=== PATIENT | male | born 1955 | race Caucasian/White ===

== ENCOUNTER 2020-07-14 14:40 | Inpatient (IN) ==
[2020-07-14] MEDS ORDERED: Naloxone 0.4 MG/ML INJ IVP PRN (16:31)
[2020-07-14] MEDS ORDERED: Acetaminophen 325 MG TABLET PO PRN (16:31)
[2020-07-14] MEDS ORDERED: Ondansetron 4 MG/2 ML VIAL IVP PRN (16:31)
[2020-07-14] MEDS: Budesonide/Formoterol 160/4.5 1 PUFF INH IH SCH (20:55)
[2020-07-14] MEDS ORDERED: Insulin DETEMIR 100 UNIT/ML per UNIT SUBQ ONE (21:00)
[2020-07-14] MEDS: clonazePAM 0.5 MG TABLET PO PRN (22:41)
[2020-07-14] MEDS: rOPINIRole 0.25 MG TABLET PO SCH (22:41)
[2020-07-14] MEDS: Psyllium 1 PACKET POWD.PACK PO SCH (22:41)
[2020-07-14] MEDS: *HR* OxyCODONE Immed Rel 5 MG TABLET PO PRN (22:42)
[2020-07-14] MEDS ORDERED: Dextrose Gel 15 GM/37.5 ML TUBE PO PRN ×2 (22:43)
[2020-07-14] MEDS ORDERED: *HR* Dextrose 50 % in Water (Vial) 50 ML VIAL IVP PRN (22:43)
[2020-07-14] MEDS ORDERED: D5% in Water 1,000 ML IVC PRN (22:43)
[2020-07-14] MEDS ORDERED: Insulin LISPRO 300 UNITS/3 ML VIAL SUBQ SCH (22:45)
[2020-07-15] MEDS: *HR* Enoxaparin 40 MG/0.4 ML SYRINGE SQ SCH (04:23)
[2020-07-15] MEDS: *HR* OxyCODONE Immed Rel 5 MG TABLET PO PRN ×3 (04:23→21:42)
[2020-07-15 05:45] LABS: Hematocrit 30.9 % (37.5-50.1); Hemoglobin 8.6 g/dL (12.9-16.9); Mean Corpuscular HGB Conc 27.8 g/dL (31.6-35.5); Mean Corpuscular Hemoglobin 19.4 pg (28.0-33.3); Mean Corpuscular Volume 69.8 fL (83.0-100.0); Mean Platelet Volume 8.4 fL (9.4-12.4); Platelet Count 392 K/mcL (140-400); Red Blood Count 4.43 M/mcL (4.19-5.50); Red Cell Distribution Width 18.8 % (11.5-14.5); White Blood Count 11.3 K/mcL (4.3-11.1)
[2020-07-15 06:06] LABS: BUN/Creatinine Ratio 25 (6-26); Blood Urea Nitrogen 23 mg/dL (8-23); Calcium 8.6 mg/dL (8.6-10.3); Carbon Dioxide 27 mEq/L (23-29); Chloride 99 mEq/L (98-107); Glucose 145 mg/dL (70-105); Magnesium 1.9 mg/dL (1.6-2.6); Osmolality,Calculated 284 (280-300); Potassium 3.5 mEq/L (3.5-5.1); Sodium 134 mEq/L (136-145); eGFR For African Americans > 60 (> 60); eGFR For Non-African Americans > 60 (> 60)
[2020-07-15] MEDS: Psyllium 1 PACKET POWD.PACK PO SCH ×3 (08:08→21:41)
[2020-07-15] MEDS: Aspirin 81 MG TAB.CHEW PO SCH (08:09)
[2020-07-15] MEDS: Furosemide 20 MG TABLET PO SCH (08:09)
[2020-07-15] MEDS: *HR* Metformin 500 MG TABLET PO SCH ×2 (08:09→16:06)
[2020-07-15] MEDS: Magnesium Oxide 400 MG TABLET PO SCH (08:10)
[2020-07-15] MEDS: predniSONE 20 MG TABLET PO SCH (08:10)
[2020-07-15] MEDS: Loratadine 10 MG TABLET PO SCH (08:10)
[2020-07-15] MEDS: Azithromycin 250 MG TABLET PO SCH (08:10)
[2020-07-15] MEDS: (Roflumilast [Daliresp] 500 MCG) PO SCH (08:11)
[2020-07-15] MEDS: Fluticasone Propionate Nasal 50 MCG/SPRAY BOTTLE NS SCH (08:14)
[2020-07-15] MEDS: Insulin DETEMIR 100 UNIT/ML X5UNITS SUBQ SCH ×2 (08:14→21:42)
[2020-07-15] MEDS ORDERED: Furosemide 20 MG TABLET PO SCH ×2 (09:00→17:00)
[2020-07-15] MEDS: Tiotropium 10 INH DOSE IH SCH (10:17)
[2020-07-15] MEDS: Budesonide/Formoterol 160/4.5 1 PUFF INH IH SCH ×2 (10:18→20:13)
[2020-07-15] MEDS ORDERED: *HR* Dextrose 50 % in Water (Vial) 50 ML VIAL IVP PRN (17:28)
[2020-07-15] MEDS ORDERED: Dextrose Gel 15 GM/37.5 ML TUBE PO PRN ×2 (17:28)
[2020-07-15] MEDS ORDERED: D5% in Water 1,000 ML IVC PRN (17:28)
[2020-07-15] MEDS: Insulin LISPRO 300 UNITS/3 ML VIAL SUBQ SCH ×2 (17:57→21:39)
[2020-07-15] MEDS: rOPINIRole 0.25 MG TABLET PO SCH (21:40)
[2020-07-15] MEDS: clonazePAM 0.5 MG TABLET PO PRN (21:42)
[2020-07-16] MEDS: *HR* Enoxaparin 40 MG/0.4 ML SYRINGE SQ SCH (06:07)
[2020-07-16] MEDS: *HR* OxyCODONE Immed Rel 5 MG TABLET PO PRN ×3 (06:09→19:05)
[2020-07-16] MEDS: Tiotropium 10 INH DOSE IH SCH (07:46)
[2020-07-16] MEDS: Budesonide/Formoterol 160/4.5 1 PUFF INH IH SCH ×2 (07:47→20:21)
[2020-07-16] MEDS: *HR* Metformin 500 MG TABLET PO SCH ×2 (09:35→16:47)
[2020-07-16] MEDS: Insulin LISPRO 300 UNITS/3 ML VIAL SUBQ SCH ×4 (09:35→22:35)
[2020-07-16] MEDS: predniSONE 20 MG TABLET PO SCH (09:35)
[2020-07-16] MEDS: Aspirin 81 MG TAB.CHEW PO SCH (09:35)
[2020-07-16] MEDS: Loratadine 10 MG TABLET PO SCH (09:36)
[2020-07-16] MEDS: Azithromycin 250 MG TABLET PO SCH (09:36)
[2020-07-16] MEDS: Magnesium Oxide 400 MG TABLET PO SCH (09:36)
[2020-07-16] MEDS: (Roflumilast [Daliresp] 500 MCG) PO SCH (09:36)
[2020-07-16] MEDS: Psyllium 1 PACKET POWD.PACK PO SCH ×3 (09:37→22:35)
[2020-07-16] MEDS: Furosemide 20 MG TABLET PO SCH (09:37)
[2020-07-16] MEDS: clonazePAM 0.5 MG TABLET PO PRN (09:57)
[2020-07-16] MEDS: Fluticasone Propionate Nasal 50 MCG/SPRAY BOTTLE NS SCH (10:00)
[2020-07-16 10:47] LABS: Basophils % 0.2 %; Eosinophils # 0.1 K/mcL (0.0-0.6); Eosinophils % 0.9 %; Hematocrit 32.8 % (37.5-50.1); Hemoglobin 9.1 g/dL (12.9-16.9); Immature Granulocytes % 1.2 % (0-4); Mean Corpuscular HGB Conc 27.7 g/dL (31.6-35.5); Mean Corpuscular Hemoglobin 19.7 pg (28.0-33.3); Mean Corpuscular Volume 71.1 fL (83.0-100.0); Mean Platelet Volume 8.6 fL (9.4-12.4); Monocytes # 0.8 K/mcL (0.0-1.3); Monocytes % 6.9 %; Neutrophils # 9.4 K/mcL (1.6-8.9); Platelet Count 397 K/mcL (140-400); Red Blood Count 4.61 M/mcL (4.19-5.50); Red Cell Distribution Width 19.3 % (11.5-14.5); Segmented Neutrophils % 81.8 %; White Blood Count 11.5 K/mcL (4.3-11.1)
[2020-07-16 10:52] LABS: Anisocytosis 1+ (Not Present); Platelet Estimate Normal (Normal)
[2020-07-16 10:52] LABS: ABG Base Excess 1 mEq/L (-2 to 3); ABG HCO3 25 mEq/L (21-27); ABG Oxygen Saturation 94 % (95-98); ABG PCO2 40 mmHg (35-45); ABG PH 7.41 pH Units (7.32-7.45); ABG PO2 72 mmHg (85-104); ABG TCO2 27 mEq/L (20-26)
[2020-07-16 10:53] LABS: Hypochromasia Present (Not Present); Poikilocytosis 1+ (Not Present)
[2020-07-16 10:59] LABS: BUN/Creatinine Ratio 18 (6-26); Blood Urea Nitrogen 19 mg/dL (8-23); Calcium 8.6 mg/dL (8.6-10.3); Carbon Dioxide 28 mEq/L (23-29); Chloride 98 mEq/L (98-107); Glucose 142 mg/dL (70-105); Osmolality,Calculated 289 (280-300); Potassium 3.5 mEq/L (3.5-5.1); Sodium 137 mEq/L (136-145); eGFR For African Americans > 60 (> 60); eGFR For Non-African Americans > 60 (> 60)
[2020-07-16] MEDS: Insulin DETEMIR 100 UNIT/ML X5UNITS SUBQ SCH ×2 (14:01→22:35)
[2020-07-16] MEDS: cefTRIAXone 2,000 MG in Water for inj. (sterile) 20 ML IVP SCH (14:01)
[2020-07-16] MEDS: Furosemide 20 MG/2 ML VIAL IVP SCH ×2 (14:02→16:47)
[2020-07-16] MEDS: MethylPREDNISolone 40 MG/ML VIAL IVP SCH ×3 (14:03→23:34)
[2020-07-16] MEDS ORDERED: Sennosides/Docusate Sodium TABLET PO PRN (15:34)
[2020-07-16] MEDS: polyethylene glycoL 3350 17 GM POWD.PACK PO SCH (16:46)
[2020-07-16] MEDS: clonazePAM 0.5 MG TABLET PO SCH (22:32)
[2020-07-16] MEDS: rOPINIRole 0.25 MG TABLET PO SCH (22:33)
[2020-07-16] MEDS: Saline Nasal Spray 44 ML BOTTLE NS PRN (22:34)
[2020-07-17] MEDS: MethylPREDNISolone 40 MG/ML VIAL IVP SCH ×3 (05:41→17:59)
[2020-07-17] MEDS: *HR* Enoxaparin 40 MG/0.4 ML SYRINGE SQ SCH (05:41)
[2020-07-17] MEDS: *HR* OxyCODONE Immed Rel 5 MG TABLET PO PRN ×3 (05:42→21:17)
[2020-07-17 05:47] LABS: Hemoglobin 8.4 g/dL (12.9-16.9); Mean Corpuscular Hemoglobin 19.6 pg (28.0-33.3); Mean Corpuscular Volume 69.9 fL (83.0-100.0); Mean Platelet Volume 8.7 fL (9.4-12.4); Platelet Count 325 K/mcL (140-400); Red Blood Count 4.29 M/mcL (4.19-5.50); Red Cell Distribution Width 19.2 % (11.5-14.5); White Blood Count 7.9 K/mcL (4.3-11.1)
[2020-07-17 06:05] LABS: BUN/Creatinine Ratio 23 (6-26); Blood Urea Nitrogen 22 mg/dL (8-23); Calcium 8.5 mg/dL (8.6-10.3); Carbon Dioxide 29 mEq/L (23-29); Chloride 98 mEq/L (98-107); Glucose 231 mg/dL (70-105); Magnesium 1.9 mg/dL (1.6-2.6); Osmolality,Calculated 287 (280-300); Potassium 4.2 mEq/L (3.5-5.1); Sodium 133 mEq/L (136-145); eGFR For African Americans > 60 (> 60); eGFR For Non-African Americans > 60 (> 60)
[2020-07-17] MEDS: Budesonide/Formoterol 160/4.5 1 PUFF INH IH SCH ×2 (07:48→20:14)
[2020-07-17] MEDS: Tiotropium 10 INH DOSE IH SCH (07:49)
[2020-07-17] MEDS ORDERED: Dexamethasone 4 MG/ML VIAL IVP SCH (09:00)
[2020-07-17] MEDS: (Roflumilast [Daliresp] 500 MCG) PO SCH (09:32)
[2020-07-17] MEDS: Insulin LISPRO 300 UNITS/3 ML VIAL SUBQ SCH ×4 (09:35→21:16)
[2020-07-17] MEDS: Insulin DETEMIR 100 UNIT/ML X5UNITS SUBQ SCH ×2 (09:36→21:14)
[2020-07-17] MEDS ORDERED: Benzonatate 100 MG CAPSULE PO PRN (10:06)
[2020-07-17] MEDS: *HR* Metformin 500 MG TABLET PO SCH ×2 (10:08→17:58)
[2020-07-17] MEDS: Furosemide 20 MG/2 ML VIAL IVP SCH ×2 (10:09→17:59)
[2020-07-17] MEDS: Fluticasone Propionate Nasal 50 MCG/SPRAY BOTTLE NS SCH (10:09)
[2020-07-17] MEDS: Aspirin 81 MG TAB.CHEW PO SCH (10:09)
[2020-07-17] MEDS: polyethylene glycoL 3350 17 GM POWD.PACK PO SCH (10:09)
[2020-07-17] MEDS: clonazePAM 0.5 MG TABLET PO SCH ×2 (10:09→21:14)
[2020-07-17] MEDS: Magnesium Oxide 400 MG TABLET PO SCH (10:09)
[2020-07-17] MEDS: Loratadine 10 MG TABLET PO SCH (10:09)
[2020-07-17] MEDS: Psyllium 1 PACKET POWD.PACK PO SCH ×3 (10:09→21:14)
[2020-07-17] MEDS: Azithromycin 250 MG TABLET PO SCH (10:20)
[2020-07-17] MEDS ORDERED: Menthol 9.1 MG LOZENGE PO PRN (11:22)
[2020-07-17] MEDS: cefTRIAXone 2,000 MG in Water for inj. (sterile) 20 ML IVP SCH (13:00)
[2020-07-17] MEDS: rOPINIRole 0.25 MG TABLET PO SCH (21:13)
[2020-07-18] MEDS: MethylPREDNISolone 40 MG/ML VIAL IVP SCH ×4 (00:42→16:17)
[2020-07-18 05:12] LABS: Basophils % 0.1 %; Hematocrit 30.8 % (37.5-50.1); Hemoglobin 8.6 g/dL (12.9-16.9); Lymphocytes # 0.8 K/mcL (0.6-4.6); Lymphocytes % 5.5 %; Mean Corpuscular HGB Conc 27.9 g/dL (31.6-35.5); Mean Corpuscular Hemoglobin 19.6 pg (28.0-33.3); Mean Corpuscular Volume 70.3 fL (83.0-100.0); Mean Platelet Volume 8.8 fL (9.4-12.4); Monocytes # 0.8 K/mcL (0.0-1.3); Monocytes % 5.9 %; Neutrophils # 12.1 K/mcL (1.6-8.9); Platelet Count 356 K/mcL (140-400); Red Blood Count 4.38 M/mcL (4.19-5.50); Red Cell Distribution Width 19.5 % (11.5-14.5); Segmented Neutrophils % 87.5 %; White Blood Count 13.8 K/mcL (4.3-11.1)
[2020-07-18 05:22] LABS: Anisocytosis 1+ (Not Present); Hypochromasia Present (Not Present); Microcytosis Present (Not Present); Platelet Estimate Normal (Normal)
[2020-07-18 05:26] LABS: BUN/Creatinine Ratio 29 (6-26); Blood Urea Nitrogen 28 mg/dL (8-23); Calcium 8.7 mg/dL (8.6-10.3); Carbon Dioxide 27 mEq/L (23-29); Chloride 101 mEq/L (98-107); Glucose 209 mg/dL (70-105); Osmolality,Calculated 296 (280-300); Potassium 4.6 mEq/L (3.5-5.1); Sodium 137 mEq/L (136-145); eGFR For African Americans > 60 (> 60); eGFR For Non-African Americans > 60 (> 60)
[2020-07-18] MEDS: *HR* Enoxaparin 40 MG/0.4 ML SYRINGE SQ SCH (06:51)
[2020-07-18] MEDS: Budesonide/Formoterol 160/4.5 1 PUFF INH IH SCH ×2 (08:35→19:50)
[2020-07-18] MEDS: Insulin LISPRO 300 UNITS/3 ML VIAL SUBQ SCH ×4 (09:35→21:13)
[2020-07-18] MEDS: Insulin DETEMIR 100 UNIT/ML X5UNITS SUBQ SCH ×2 (09:35→21:16)
[2020-07-18] MEDS: Magnesium Oxide 400 MG TABLET PO SCH (09:36)
[2020-07-18] MEDS: Furosemide 20 MG/2 ML VIAL IVP SCH (09:36)
[2020-07-18] MEDS: Loratadine 10 MG TABLET PO SCH (09:36)
[2020-07-18] MEDS: Aspirin 81 MG TAB.CHEW PO SCH (09:37)
[2020-07-18] MEDS: clonazePAM 0.5 MG TABLET PO SCH ×2 (09:37→21:12)
[2020-07-18] MEDS: Fluticasone Propionate Nasal 50 MCG/SPRAY BOTTLE NS SCH (09:37)
[2020-07-18] MEDS: *HR* OxyCODONE Immed Rel 5 MG TABLET PO PRN ×2 (09:37→21:12)
[2020-07-18] MEDS: *HR* Metformin 500 MG TABLET PO SCH ×2 (09:37→16:42)
[2020-07-18] MEDS: Psyllium 1 PACKET POWD.PACK PO SCH ×3 (09:37→21:12)
[2020-07-18] MEDS: polyethylene glycoL 3350 17 GM POWD.PACK PO SCH (09:38)
[2020-07-18] MEDS: Saline Nasal Spray 44 ML BOTTLE NS PRN (09:38)
[2020-07-18] MEDS: (Roflumilast [Daliresp] 500 MCG) PO SCH (09:38)
[2020-07-18] MEDS: Tiotropium 10 INH DOSE IH SCH (11:23)
[2020-07-18] MEDS: cefTRIAXone 2,000 MG in Water for inj. (sterile) 20 ML IVP SCH (13:10)
[2020-07-18] MEDS: Furosemide 40 MG TABLET PO SCH (16:41)
[2020-07-18] MEDS: rOPINIRole 0.25 MG TABLET PO SCH (21:11)
[2020-07-19] MEDS: MethylPREDNISolone 40 MG/ML VIAL IVP SCH ×2 (00:18→09:06)
[2020-07-19 05:08] LABS: Basophils % 0.1 %; Hematocrit 32.1 % (37.5-50.1); Immature Granulocytes % 0.9 % (0-4); Lymphocytes # 0.8 K/mcL (0.6-4.6); Lymphocytes % 5.6 %; Mean Corpuscular Hemoglobin 19.8 pg (28.0-33.3); Mean Corpuscular Volume 70.5 fL (83.0-100.0); Mean Platelet Volume 8.8 fL (9.4-12.4); Monocytes # 0.9 K/mcL (0.0-1.3); Monocytes % 6.2 %; Platelet Count 347 K/mcL (140-400); Red Blood Count 4.55 M/mcL (4.19-5.50); Red Cell Distribution Width 19.9 % (11.5-14.5); Segmented Neutrophils % 87.2 %; White Blood Count 13.8 K/mcL (4.3-11.1)
[2020-07-19 05:19] LABS: BUN/Creatinine Ratio 25 (6-26); Blood Urea Nitrogen 25 mg/dL (8-23); Calcium 8.9 mg/dL (8.6-10.3); Carbon Dioxide 32 mEq/L (23-29); Chloride 97 mEq/L (98-107); Glucose 153 mg/dL (70-105); Osmolality,Calculated 289 (280-300); Potassium 4.4 mEq/L (3.5-5.1); Sodium 136 mEq/L (136-145); eGFR For African Americans > 60 (> 60); eGFR For Non-African Americans > 60 (> 60)
[2020-07-19 05:21] LABS: Anisocytosis 1+ (Not Present); Platelet Estimate Normal (Normal)
[2020-07-19 05:22] LABS: Hypochromasia Present (Not Present); Microcytosis Present (Not Present)
[2020-07-19] MEDS: *HR* Enoxaparin 40 MG/0.4 ML SYRINGE SQ SCH (06:08)
[2020-07-19] MEDS: *HR* OxyCODONE Immed Rel 5 MG TABLET PO PRN (06:10)
[2020-07-19] MEDS: Budesonide/Formoterol 160/4.5 1 PUFF INH IH SCH (07:45)
[2020-07-19 08:23] LABS: C-Reactive Protein 19 mg/L (Less than 10)
[2020-07-19] MEDS: Psyllium 1 PACKET POWD.PACK PO SCH (09:05)
[2020-07-19] MEDS: Aspirin 81 MG TAB.CHEW PO SCH (09:05)
[2020-07-19] MEDS: clonazePAM 0.5 MG TABLET PO SCH (09:05)
[2020-07-19] MEDS: polyethylene glycoL 3350 17 GM POWD.PACK PO SCH (09:05)
[2020-07-19] MEDS: *HR* Metformin 500 MG TABLET PO SCH (09:05)
[2020-07-19] MEDS: Loratadine 10 MG TABLET PO SCH (09:05)
[2020-07-19] MEDS: Insulin LISPRO 300 UNITS/3 ML VIAL SUBQ SCH ×2 (09:05→12:22)
[2020-07-19] MEDS: Magnesium Oxide 400 MG TABLET PO SCH (09:06)
[2020-07-19] MEDS: Furosemide 40 MG TABLET PO SCH (09:06)
[2020-07-19] MEDS: Fluticasone Propionate Nasal 50 MCG/SPRAY BOTTLE NS SCH (09:07)
[2020-07-19] MEDS: (Roflumilast [Daliresp] 500 MCG) PO SCH (09:10)
[2020-07-19] MEDS: Insulin DETEMIR 100 UNIT/ML X5UNITS SUBQ SCH (09:36)
[2020-07-19] MEDS: Tiotropium 10 INH DOSE IH SCH (11:42)
[2020-07-19] MEDS: cefTRIAXone 2,000 MG in Water for inj. (sterile) 20 ML IVP SCH (14:19)
[2020-07-19 19:01] VITALS: BP 132/79
== END 2020-07-19 14:25 | disposition other institution (70) | DRG 177 ==
LOC: INPGRE 17:29
PROVIDERS: ADMIT Family Medicine; ATTEND Family Medicine

== ENCOUNTER 2020-07-19 15:09 | Inpatient (IN) ==
[2020-07-19] MEDS ORDERED: Saline Nasal Spray 44 ML BOTTLE NS PRN (15:35)
[2020-07-19] MEDS ORDERED: Dextrose Gel 15 GM/37.5 ML TUBE PO PRN ×2 (15:45)
[2020-07-19] MEDS ORDERED: *HR* Dextrose 50 % in Water (Vial) 50 ML VIAL IVP PRN (15:45)
[2020-07-19] MEDS ORDERED: D5% in Water 1,000 ML IVC PRN (15:45)
[2020-07-19] MEDS ORDERED: Acetaminophen 325 MG TABLET PO PRN (15:51)
[2020-07-19] MEDS ORDERED: Ondansetron 4 MG/2 ML VIAL IVP PRN (15:52)
[2020-07-19] MEDS: MethylPREDNISolone 40 MG/ML VIAL IVP SCH ×2 (18:39→23:33)
[2020-07-19] MEDS: Furosemide 40 MG TABLET PO SCH (18:39)
[2020-07-19] MEDS: Insulin LISPRO 300 UNITS/3 ML VIAL SUBQ SCH ×2 (18:56→20:20)
[2020-07-19] MEDS: *HR* OxyCODONE Immed Rel 5 MG TABLET PO PRN ×2 (18:58→23:28)
[2020-07-19] MEDS: Budesonide/Formoterol 160/4.5 1 PUFF INH IH SCH ×2 (20:09→21:39)
[2020-07-19] MEDS: *HR* Metformin 500 MG TABLET PO SCH (20:27)
[2020-07-19] MEDS: Metoclopramide 10 MG/10 ML UD.LIQ PO SCH (20:28)
[2020-07-19] MEDS: rOPINIRole 0.25 MG TABLET PO SCH (20:28)
[2020-07-19] MEDS: Psyllium 1 PACKET POWD.PACK PO SCH (20:28)
[2020-07-19] MEDS ORDERED: Insulin DETEMIR 100 UNIT/ML per UNIT SUBQ ONE (21:00)
[2020-07-20] MEDS: *HR* Enoxaparin 40 MG/0.4 ML SYRINGE SQ SCH (05:33)
[2020-07-20] MEDS: *HR* OxyCODONE Immed Rel 5 MG TABLET PO PRN ×3 (05:34→20:44)
[2020-07-20] MEDS: Tiotropium 10 INH DOSE IH SCH (07:50)
[2020-07-20] MEDS: Budesonide/Formoterol 160/4.5 1 PUFF INH IH SCH ×2 (07:50→20:04)
[2020-07-20] MEDS ORDERED: cefTRIAXone 2,000 MG in Water for inj. (sterile) 20 ML IVP SCH (09:00)
[2020-07-20] MEDS: Insulin LISPRO 300 UNITS/3 ML VIAL SUBQ SCH ×4 (09:33→20:41)
[2020-07-20] MEDS: Insulin DETEMIR 100 UNIT/ML X5UNITS SUBQ SCH ×2 (09:34→20:42)
[2020-07-20] MEDS: *HR* Metformin 500 MG TABLET PO SCH ×2 (09:35→20:44)
[2020-07-20] MEDS: Aspirin 81 MG TAB.CHEW PO SCH (09:35)
[2020-07-20] MEDS: Loratadine 10 MG TABLET PO SCH (09:36)
[2020-07-20] MEDS: Metoclopramide 10 MG/10 ML UD.LIQ PO SCH ×3 (09:36→17:04)
[2020-07-20] MEDS: Magnesium Oxide 400 MG TABLET PO SCH (09:36)
[2020-07-20] MEDS: Fluticasone Propionate Nasal 50 MCG/SPRAY BOTTLE NS SCH (09:37)
[2020-07-20] MEDS: MethylPREDNISolone 40 MG/ML VIAL IVP SCH (09:37)
[2020-07-20] MEDS: Furosemide 40 MG TABLET PO SCH ×2 (09:37→17:04)
[2020-07-20] MEDS: Psyllium 1 PACKET POWD.PACK PO SCH ×3 (09:38→20:41)
[2020-07-20] MEDS: polyethylene glycoL 3350 17 GM POWD.PACK PO SCH (09:38)
[2020-07-20] MEDS: predniSONE 20 MG TABLET PO SCH (17:04)
[2020-07-20] MEDS: Menthol 9.1 MG LOZENGE PO PRN ×2 (17:07→20:41)
[2020-07-20] MEDS: rOPINIRole 0.25 MG TABLET PO SCH (20:43)
[2020-07-20] MEDS: Cefdinir 300 MG CAPSULE PO SCH (20:43)
[2020-07-20] MEDS: clonazePAM 0.5 MG TABLET PO PRN (20:44)
[2020-07-21 05:09] LABS: Hematocrit 31.1 % (37.5-50.1); Hemoglobin 8.8 g/dL (12.9-16.9); Mean Corpuscular HGB Conc 28.3 g/dL (31.6-35.5); Mean Corpuscular Hemoglobin 19.9 pg (28.0-33.3); Mean Corpuscular Volume 70.2 fL (83.0-100.0); Platelet Count 310 K/mcL (140-400); Red Blood Count 4.43 M/mcL (4.19-5.50); Red Cell Distribution Width 20.1 % (11.5-14.5); White Blood Count 11.3 K/mcL (4.3-11.1)
[2020-07-21 05:23] LABS: BUN/Creatinine Ratio 24 (6-26); Blood Urea Nitrogen 21 mg/dL (8-23); Calcium 8.6 mg/dL (8.6-10.3); Carbon Dioxide 29 mEq/L (23-29); Chloride 95 mEq/L (98-107); Glucose 154 mg/dL (70-105); Osmolality,Calculated 280 (280-300); Sodium 132 mEq/L (136-145); eGFR For African Americans > 60 (> 60); eGFR For Non-African Americans > 60 (> 60)
[2020-07-21] MEDS: *HR* Enoxaparin 40 MG/0.4 ML SYRINGE SQ SCH (05:27)
[2020-07-21] MEDS: Insulin LISPRO 300 UNITS/3 ML VIAL SUBQ SCH ×4 (07:35→21:35)
[2020-07-21] MEDS: Insulin DETEMIR 100 UNIT/ML X5UNITS SUBQ SCH ×2 (08:44→21:35)
[2020-07-21] MEDS: Psyllium 1 PACKET POWD.PACK PO SCH ×3 (08:44→21:30)
[2020-07-21] MEDS: Metoclopramide 10 MG/10 ML UD.LIQ PO SCH ×3 (08:44→16:53)
[2020-07-21] MEDS: *HR* Metformin 500 MG TABLET PO SCH ×2 (08:44→21:29)
[2020-07-21] MEDS: predniSONE 20 MG TABLET PO SCH ×2 (08:44→16:53)
[2020-07-21] MEDS: Aspirin 81 MG TAB.CHEW PO SCH (08:44)
[2020-07-21] MEDS: Loratadine 10 MG TABLET PO SCH (08:45)
[2020-07-21] MEDS: Furosemide 40 MG TABLET PO SCH ×2 (08:45→16:53)
[2020-07-21] MEDS: Cefdinir 300 MG CAPSULE PO SCH ×2 (08:45→21:30)
[2020-07-21] MEDS: *HR* OxyCODONE Immed Rel 5 MG TABLET PO PRN ×2 (08:46→21:33)
[2020-07-21] MEDS: Budesonide/Formoterol 160/4.5 1 PUFF INH IH SCH ×2 (08:53→19:14)
[2020-07-21] MEDS: Tiotropium 10 INH DOSE IH SCH (08:53)
[2020-07-21] MEDS: clonazePAM 0.5 MG TABLET PO PRN ×2 (09:00→21:33)
[2020-07-21] MEDS ORDERED: Dexamethasone 4 MG/ML VIAL IVP ONE ×2 (09:13→09:14)
[2020-07-21] MEDS: Menthol 9.1 MG LOZENGE PO PRN (09:54)
[2020-07-21] MEDS: Benzonatate 100 MG CAPSULE PO PRN ×2 (09:54→21:33)
[2020-07-21] MEDS: polyethylene glycoL 3350 17 GM POWD.PACK PO SCH (09:55)
[2020-07-21] MEDS: Fluticasone Propionate Nasal 50 MCG/SPRAY BOTTLE NS SCH (09:55)
[2020-07-21] MEDS: Magnesium Oxide 400 MG TABLET PO SCH (09:55)
[2020-07-21] MEDS: Ketorolac 15 MG/ML VIAL IVP PRN ×2 (13:23→22:35)
[2020-07-21] MEDS: levoFLOXacin 500 MG TABLET PO SCH (16:53)
[2020-07-21] MEDS: rOPINIRole 0.25 MG TABLET PO SCH (21:30)
[2020-07-22] MEDS: *HR* Enoxaparin 40 MG/0.4 ML SYRINGE SQ SCH (05:58)
[2020-07-22] MEDS: *HR* OxyCODONE Immed Rel 5 MG TABLET PO PRN (05:58)
[2020-07-22] MEDS ORDERED: dexAMETHasone 4 MG TABLET PO SCH (09:00)
[2020-07-22] MEDS: Magnesium Oxide 400 MG TABLET PO SCH (09:23)
[2020-07-22] MEDS: predniSONE 20 MG TABLET PO SCH ×2 (09:23→17:45)
[2020-07-22] MEDS: levoFLOXacin 500 MG TABLET PO SCH (09:23)
[2020-07-22] MEDS: Loratadine 10 MG TABLET PO SCH (09:23)
[2020-07-22] MEDS: Cefdinir 300 MG CAPSULE PO SCH ×2 (09:24→22:33)
[2020-07-22] MEDS: Metoclopramide 10 MG/10 ML UD.LIQ PO SCH ×3 (09:24→17:45)
[2020-07-22] MEDS: clonazePAM 0.5 MG TABLET PO PRN ×2 (09:24→22:33)
[2020-07-22] MEDS: *HR* Metformin 500 MG TABLET PO SCH ×2 (09:24→22:32)
[2020-07-22] MEDS: Furosemide 40 MG TABLET PO SCH ×2 (09:24→17:45)
[2020-07-22] MEDS: Aspirin 81 MG TAB.CHEW PO SCH (09:24)
[2020-07-22] MEDS: Fluticasone Propionate Nasal 50 MCG/SPRAY BOTTLE NS SCH (09:26)
[2020-07-22] MEDS: Budesonide/Formoterol 160/4.5 1 PUFF INH IH SCH ×2 (09:43→20:00)
[2020-07-22] MEDS: Tiotropium 10 INH DOSE IH SCH (09:43)
[2020-07-22] MEDS: Insulin DETEMIR 100 UNIT/ML X5UNITS SUBQ SCH ×2 (10:01→22:37)
[2020-07-22] MEDS: polyethylene glycoL 3350 17 GM POWD.PACK PO SCH (11:24)
[2020-07-22] MEDS: Insulin LISPRO 300 UNITS/3 ML VIAL SUBQ SCH ×4 (11:25→22:37)
[2020-07-22] MEDS: Psyllium 1 PACKET POWD.PACK PO SCH ×3 (11:26→22:36)
[2020-07-22] MEDS: rOPINIRole 0.25 MG TABLET PO SCH (22:32)
[2020-07-22] MEDS: Benzonatate 100 MG CAPSULE PO PRN (22:34)
[2020-07-22] MEDS: Ketorolac 15 MG/ML VIAL IVP PRN (22:35)
[2020-07-23] MEDS: *HR* OxyCODONE Immed Rel 5 MG TABLET PO PRN ×2 (06:24→21:01)
[2020-07-23] MEDS: *HR* Enoxaparin 40 MG/0.4 ML SYRINGE SQ SCH (06:24)
[2020-07-23] MEDS: Insulin LISPRO 300 UNITS/3 ML VIAL SUBQ SCH ×4 (08:21→20:58)
[2020-07-23] MEDS: Budesonide/Formoterol 160/4.5 1 PUFF INH IH SCH ×2 (08:50→20:38)
[2020-07-23] MEDS: Metoclopramide 10 MG/10 ML UD.LIQ PO SCH ×3 (09:30→15:15)
[2020-07-23] MEDS: Aspirin 81 MG TAB.CHEW PO SCH (09:30)
[2020-07-23] MEDS: Psyllium 1 PACKET POWD.PACK PO SCH ×3 (09:30→20:58)
[2020-07-23] MEDS: Cefdinir 300 MG CAPSULE PO SCH (09:30)
[2020-07-23] MEDS: Magnesium Oxide 400 MG TABLET PO SCH (09:31)
[2020-07-23] MEDS: Loratadine 10 MG TABLET PO SCH (09:31)
[2020-07-23] MEDS: predniSONE 20 MG TABLET PO SCH ×2 (09:31→15:15)
[2020-07-23] MEDS: Furosemide 40 MG TABLET PO SCH (09:31)
[2020-07-23] MEDS: polyethylene glycoL 3350 17 GM POWD.PACK PO SCH (09:31)
[2020-07-23] MEDS: levoFLOXacin 500 MG TABLET PO SCH (09:32)
[2020-07-23] MEDS: Fluticasone Propionate Nasal 50 MCG/SPRAY BOTTLE NS SCH (09:32)
[2020-07-23] MEDS: *HR* Metformin 500 MG TABLET PO SCH ×2 (09:32→20:44)
[2020-07-23] MEDS: Tiotropium 10 INH DOSE IH SCH (09:57)
[2020-07-23] MEDS: Insulin DETEMIR 100 UNIT/ML X5UNITS SUBQ SCH ×2 (10:50→20:55)
[2020-07-23] MEDS ORDERED: Albuterol 2.5 MG/3 ML NEBULIZER ONE (12:05)
[2020-07-23] MEDS ORDERED: Furosemide 20 MG/2 ML VIAL IVP ONE (14:34)
[2020-07-23] MEDS: Ipratropium/Albuterol Neb 3 ML IH SCH ×3 (16:15→23:44)
[2020-07-23] MEDS: Furosemide 40 MG/4 ML VIAL IVP SCH (20:43)
[2020-07-23] MEDS: rOPINIRole 0.25 MG TABLET PO SCH (20:44)
[2020-07-23] MEDS: clonazePAM 0.5 MG TABLET PO PRN (22:41)
[2020-07-24] MEDS: Cefepime HCl 1,000 MG in 0.9 % Sodium Chloride Mini Bag 100 ML IVPB SCH ×3 (00:26→16:50)
[2020-07-24] MEDS: Ipratropium/Albuterol Neb 3 ML IH SCH ×6 (03:59→23:58)
[2020-07-24] MEDS: *HR* Enoxaparin 40 MG/0.4 ML SYRINGE SQ SCH (05:46)
[2020-07-24] MEDS: Insulin LISPRO 300 UNITS/3 ML VIAL SUBQ SCH ×4 (08:57→20:43)
[2020-07-24] MEDS: Metoclopramide 10 MG/10 ML UD.LIQ PO SCH ×3 (08:58→14:41)
[2020-07-24] MEDS: Loratadine 10 MG TABLET PO SCH (08:59)
[2020-07-24] MEDS: Psyllium 1 PACKET POWD.PACK PO SCH ×3 (08:59→20:37)
[2020-07-24] MEDS: Aspirin 81 MG TAB.CHEW PO SCH (08:59)
[2020-07-24] MEDS: *HR* Metformin 500 MG TABLET PO SCH ×2 (08:59→20:32)
[2020-07-24] MEDS: predniSONE 20 MG TABLET PO SCH ×2 (08:59→16:48)
[2020-07-24] MEDS: Magnesium Oxide 400 MG TABLET PO SCH (09:00)
[2020-07-24] MEDS: levoFLOXacin 500 MG TABLET PO SCH (09:00)
[2020-07-24] MEDS: Fluticasone Propionate Nasal 50 MCG/SPRAY BOTTLE NS SCH (09:01)
[2020-07-24] MEDS: polyethylene glycoL 3350 17 GM POWD.PACK PO SCH (09:01)
[2020-07-24] MEDS: *HR* OxyCODONE Immed Rel 5 MG TABLET PO PRN ×3 (09:05→20:42)
[2020-07-24] MEDS: Budesonide/Formoterol 160/4.5 1 PUFF INH IH SCH ×2 (09:06→19:59)
[2020-07-24] MEDS: Tiotropium 10 INH DOSE IH SCH (09:07)
[2020-07-24] MEDS: Insulin DETEMIR 100 UNIT/ML X5UNITS SUBQ SCH ×2 (09:13→20:43)
[2020-07-24] MEDS: Furosemide 40 MG/4 ML VIAL IVP SCH ×2 (09:14→20:30)
[2020-07-24 09:59] LABS: Hematocrit 35.8 % (37.5-50.1); Hemoglobin 10.2 g/dL (12.9-16.9); Mean Corpuscular HGB Conc 28.5 g/dL (31.6-35.5); Mean Corpuscular Hemoglobin 20.1 pg (28.0-33.3); Mean Corpuscular Volume 70.6 fL (83.0-100.0); Mean Platelet Volume 8.8 fL (9.4-12.4); Platelet Count 418 K/mcL (140-400); Red Blood Count 5.07 M/mcL (4.19-5.50); White Blood Count 11.4 K/mcL (4.3-11.1)
[2020-07-24 10:15] LABS: BUN/Creatinine Ratio 23 (6-26); Blood Urea Nitrogen 22 mg/dL (8-23); Calcium 9.3 mg/dL (8.6-10.3); Carbon Dioxide 29 mEq/L (23-29); Chloride 97 mEq/L (98-107); Glucose 96 mg/dL (70-105); Osmolality,Calculated 287 (280-300); Potassium 3.9 mEq/L (3.5-5.1); Sodium 137 mEq/L (136-145); eGFR For African Americans > 60 (> 60); eGFR For Non-African Americans > 60 (> 60)
[2020-07-24] MEDS: rOPINIRole 0.25 MG TABLET PO SCH (20:32)
[2020-07-24] MEDS: clonazePAM 0.5 MG TABLET PO PRN (22:14)
[2020-07-25] MEDS: Cefepime HCl 1,000 MG in 0.9 % Sodium Chloride Mini Bag 100 ML IVPB SCH ×3 (00:02→17:45)
[2020-07-25] MEDS: Ipratropium/Albuterol Neb 3 ML IH SCH ×6 (04:03→22:56)
[2020-07-25] MEDS: *HR* Enoxaparin 40 MG/0.4 ML SYRINGE SQ SCH (06:02)
[2020-07-25] MEDS: Tiotropium 10 INH DOSE IH SCH (09:13)
[2020-07-25] MEDS: Budesonide/Formoterol 160/4.5 1 PUFF INH IH SCH ×2 (09:14→19:00)
[2020-07-25] MEDS: Insulin LISPRO 300 UNITS/3 ML VIAL SUBQ SCH ×4 (10:09→20:48)
[2020-07-25] MEDS: *HR* Metformin 500 MG TABLET PO SCH ×2 (10:10→20:47)
[2020-07-25] MEDS: predniSONE 20 MG TABLET PO SCH ×2 (10:10→17:03)
[2020-07-25] MEDS: Aspirin 81 MG TAB.CHEW PO SCH (10:11)
[2020-07-25] MEDS: Magnesium Oxide 400 MG TABLET PO SCH (10:11)
[2020-07-25] MEDS: Psyllium 1 PACKET POWD.PACK PO SCH ×3 (10:11→20:48)
[2020-07-25] MEDS: levoFLOXacin 500 MG TABLET PO SCH (10:12)
[2020-07-25] MEDS: Fluticasone Propionate Nasal 50 MCG/SPRAY BOTTLE NS SCH (10:12)
[2020-07-25] MEDS: Loratadine 10 MG TABLET PO SCH (10:12)
[2020-07-25] MEDS: Furosemide 40 MG/4 ML VIAL IVP SCH ×2 (10:12→20:46)
[2020-07-25] MEDS: Insulin DETEMIR 100 UNIT/ML X5UNITS SUBQ SCH ×2 (10:14→21:01)
[2020-07-25] MEDS: Metoclopramide 10 MG/10 ML UD.LIQ PO SCH ×3 (10:16→17:06)
[2020-07-25] MEDS: polyethylene glycoL 3350 17 GM POWD.PACK PO SCH (10:24)
[2020-07-25] MEDS: clonazePAM 0.5 MG TABLET PO PRN ×2 (13:06→20:59)
[2020-07-25] MEDS: Menthol 9.1 MG LOZENGE PO PRN (17:04)
[2020-07-25] MEDS: rOPINIRole 0.25 MG TABLET PO SCH (20:47)
[2020-07-25] MEDS: Benzonatate 100 MG CAPSULE PO PRN (20:58)
[2020-07-25] MEDS: *HR* OxyCODONE Immed Rel 5 MG TABLET PO PRN (20:59)
[2020-07-26] MEDS: Cefepime HCl 1,000 MG in 0.9 % Sodium Chloride Mini Bag 100 ML IVPB SCH ×4 (00:05→23:02)
[2020-07-26] MEDS: Menthol 9.1 MG LOZENGE PO PRN ×2 (00:08→07:52)
[2020-07-26] MEDS: Ipratropium/Albuterol Neb 3 ML IH SCH ×6 (03:00→23:01)
[2020-07-26] MEDS: *HR* Enoxaparin 40 MG/0.4 ML SYRINGE SQ SCH (05:02)
[2020-07-26] MEDS: Insulin LISPRO 300 UNITS/3 ML VIAL SUBQ SCH ×4 (07:51→19:30)
[2020-07-26] MEDS: Psyllium 1 PACKET POWD.PACK PO SCH ×3 (07:52→19:30)
[2020-07-26] MEDS: Metoclopramide 10 MG/10 ML UD.LIQ PO SCH ×3 (07:52→15:53)
[2020-07-26] MEDS: predniSONE 20 MG TABLET PO SCH ×2 (07:53→15:54)
[2020-07-26] MEDS: *HR* Metformin 500 MG TABLET PO SCH ×2 (07:54→19:26)
[2020-07-26] MEDS: levoFLOXacin 500 MG TABLET PO SCH (07:54)
[2020-07-26] MEDS: Loratadine 10 MG TABLET PO SCH (07:54)
[2020-07-26] MEDS: Aspirin 81 MG TAB.CHEW PO SCH (07:54)
[2020-07-26] MEDS: Magnesium Oxide 400 MG TABLET PO SCH (07:54)
[2020-07-26] MEDS: Fluticasone Propionate Nasal 50 MCG/SPRAY BOTTLE NS SCH (07:56)
[2020-07-26] MEDS: polyethylene glycoL 3350 17 GM POWD.PACK PO SCH (07:56)
[2020-07-26] MEDS: Furosemide 40 MG/4 ML VIAL IVP SCH ×2 (07:56→19:30)
[2020-07-26] MEDS: *HR* OxyCODONE Immed Rel 5 MG TABLET PO PRN ×2 (08:10→19:29)
[2020-07-26] MEDS: Budesonide/Formoterol 160/4.5 1 PUFF INH IH SCH ×2 (08:44→21:53)
[2020-07-26] MEDS: Tiotropium 10 INH DOSE IH SCH (08:46)
[2020-07-26 09:24] LABS: Hematocrit 37.5 % (37.5-50.1); Hemoglobin 10.7 g/dL (12.9-16.9); Mean Corpuscular HGB Conc 28.5 g/dL (31.6-35.5); Mean Corpuscular Volume 70.1 fL (83.0-100.0); Mean Platelet Volume 8.6 fL (9.4-12.4); Platelet Count 489 K/mcL (140-400); Red Blood Count 5.35 M/mcL (4.19-5.50); Red Cell Distribution Width 21.4 % (11.5-14.5); White Blood Count 13.3 K/mcL (4.3-11.1)
[2020-07-26 09:42] LABS: Alanine Aminotransferase 21 Units/L (7-52); Albumin 3.8 g/dL (3.5-5.7); Alkaline Phosphatase 68 Units/L (34-104); Aspartate Amino Transferase 12 Units/L (13-39); BUN/Creatinine Ratio 27 (6-26); Bilirubin,Total 0.3 mg/dL (0.3-1.0); Blood Urea Nitrogen 28 mg/dL (8-23); Calcium 9.8 mg/dL (8.6-10.3); Carbon Dioxide 27 mEq/L (23-29); Chloride 95 mEq/L (98-107); Glucose 163 mg/dL (70-105); Magnesium 1.7 mg/dL (1.6-2.6); Osmolality,Calculated 289 (280-300); Potassium 3.9 mEq/L (3.5-5.1); Sodium 135 mEq/L (136-145); Total Protein 7.8 g/dL (6.4-8.9); eGFR For African Americans > 60 (> 60); eGFR For Non-African Americans > 60 (> 60)
[2020-07-26] MEDS: Insulin DETEMIR 100 UNIT/ML X5UNITS SUBQ SCH ×2 (09:49→19:29)
[2020-07-26 13:38] LABS: C-Reactive Protein 74 mg/L (Less than 10)
[2020-07-26 13:52] LABS: Ferritin 513 ng/mL (20-250)
[2020-07-26] MEDS: rOPINIRole 0.25 MG TABLET PO SCH (19:29)
[2020-07-26] MEDS: Benzonatate 100 MG CAPSULE PO PRN (19:29)
[2020-07-26] MEDS: clonazePAM 0.5 MG TABLET PO PRN (19:33)
[2020-07-27] MEDS: Ipratropium/Albuterol Neb 3 ML IH SCH ×6 (04:00→23:49)
[2020-07-27] MEDS: *HR* Enoxaparin 40 MG/0.4 ML SYRINGE SQ SCH (06:40)
[2020-07-27] MEDS: Fluticasone Propionate Nasal 50 MCG/SPRAY BOTTLE NS SCH (08:52)
[2020-07-27] MEDS: polyethylene glycoL 3350 17 GM POWD.PACK PO SCH (08:53)
[2020-07-27] MEDS: Psyllium 1 PACKET POWD.PACK PO SCH ×3 (08:53→20:03)
[2020-07-27] MEDS: predniSONE 20 MG TABLET PO SCH ×2 (08:54→16:34)
[2020-07-27] MEDS: levoFLOXacin 500 MG TABLET PO SCH (08:54)
[2020-07-27] MEDS: *HR* Metformin 500 MG TABLET PO SCH ×2 (08:54→20:06)
[2020-07-27] MEDS: Aspirin 81 MG TAB.CHEW PO SCH (08:54)
[2020-07-27] MEDS: Magnesium Oxide 400 MG TABLET PO SCH (08:54)
[2020-07-27] MEDS: Metoclopramide 10 MG/10 ML UD.LIQ PO SCH ×3 (08:55→16:34)
[2020-07-27] MEDS: *HR* OxyCODONE Immed Rel 5 MG TABLET PO PRN ×3 (08:55→20:05)
[2020-07-27] MEDS: clonazePAM 0.5 MG TABLET PO PRN ×3 (08:55→20:06)
[2020-07-27] MEDS: Loratadine 10 MG TABLET PO SCH (08:55)
[2020-07-27] MEDS: Cefepime HCl 1,000 MG in 0.9 % Sodium Chloride Mini Bag 100 ML IVPB SCH ×3 (08:58→22:30)
[2020-07-27] MEDS: Insulin DETEMIR 100 UNIT/ML X5UNITS SUBQ SCH ×2 (08:59→20:00)
[2020-07-27] MEDS: Insulin LISPRO 300 UNITS/3 ML VIAL SUBQ SCH ×4 (08:59→20:00)
[2020-07-27] MEDS: Furosemide 40 MG/4 ML VIAL IVP SCH ×2 (09:02→19:58)
[2020-07-27] MEDS: Tiotropium 10 INH DOSE IH SCH (09:45)
[2020-07-27] MEDS: Budesonide/Formoterol 160/4.5 1 PUFF INH IH SCH ×2 (09:47→20:10)
[2020-07-27] MEDS: Menthol 9.1 MG LOZENGE PO PRN ×2 (11:34→15:06)
[2020-07-27] MEDS: Benzonatate 100 MG CAPSULE PO PRN (20:06)
[2020-07-27] MEDS: rOPINIRole 0.25 MG TABLET PO SCH (20:07)
[2020-07-28] MEDS: Ipratropium/Albuterol Neb 3 ML IH SCH ×2 (03:56→07:36)
[2020-07-28] MEDS: *HR* Enoxaparin 40 MG/0.4 ML SYRINGE SQ SCH (04:50)
[2020-07-28] MEDS: Tiotropium 10 INH DOSE IH SCH (07:37)
[2020-07-28] MEDS: Budesonide/Formoterol 160/4.5 1 PUFF INH IH SCH (07:38)
[2020-07-28] MEDS: Loratadine 10 MG TABLET PO SCH (08:47)
[2020-07-28] MEDS: *HR* OxyCODONE Immed Rel 5 MG TABLET PO PRN (08:47)
[2020-07-28] MEDS: *HR* Metformin 500 MG TABLET PO SCH (08:47)
[2020-07-28] MEDS: levoFLOXacin 500 MG TABLET PO SCH (08:47)
[2020-07-28] MEDS: clonazePAM 0.5 MG TABLET PO PRN (08:47)
[2020-07-28] MEDS: Aspirin 81 MG TAB.CHEW PO SCH (08:47)
[2020-07-28] MEDS: predniSONE 20 MG TABLET PO SCH (08:47)
[2020-07-28] MEDS: Metoclopramide 10 MG/10 ML UD.LIQ PO SCH (08:48)
[2020-07-28] MEDS: Magnesium Oxide 400 MG TABLET PO SCH (08:48)
[2020-07-28] MEDS: Menthol 9.1 MG LOZENGE PO PRN ×2 (08:51→10:38)
[2020-07-28] MEDS: Insulin DETEMIR 100 UNIT/ML X5UNITS SUBQ SCH (08:52)
[2020-07-28] MEDS: Insulin LISPRO 300 UNITS/3 ML VIAL SUBQ SCH (08:53)
[2020-07-28] MEDS: Cefepime HCl 1,000 MG in 0.9 % Sodium Chloride Mini Bag 100 ML IVPB SCH (08:54)
[2020-07-28] MEDS: Fluticasone Propionate Nasal 50 MCG/SPRAY BOTTLE NS SCH (08:54)
[2020-07-28] MEDS: Furosemide 40 MG/4 ML VIAL IVP SCH (08:57)
[2020-07-28] MEDS: polyethylene glycoL 3350 17 GM POWD.PACK PO SCH (08:57)
[2020-07-28] MEDS: Psyllium 1 PACKET POWD.PACK PO SCH (08:57)
[2020-07-28 11:11] VITALS: BP 144/76
== END 2020-07-28 10:59 | disposition home health service (06) | DRG 177 ==
LOC: INPGRE 15:12 → SUATTDRO 15:12 → INPGRE 07-22 13:58
PROVIDERS: ADMIT Internal Medicine; ATTEND Family Medicine

== ENCOUNTER 2020-08-09 17:49 | Inpatient (IN) ==
[2020-08-12] MEDS ORDERED: Acetaminophen 325 MG TABLET PO PRN (14:49)
[2020-08-12] MEDS ORDERED: Saline Nasal Spray 44 ML BOTTLE NS PRN (14:52)
[2020-08-12] MEDS ORDERED: *HR* Dextrose 50 % in Water (Vial) 50 ML VIAL IVP PRN (16:45)
[2020-08-12] MEDS ORDERED: D5% in Water 1,000 ML IVC PRN (16:45)
[2020-08-12] MEDS ORDERED: Dextrose Gel 15 GM/37.5 ML TUBE PO PRN ×2 (16:45)
[2020-08-12] MEDS: Furosemide 40 MG TABLET PO SCH (17:37)
[2020-08-12] MEDS: *HR* Metformin 500 MG TABLET PO SCH (17:37)
[2020-08-12] MEDS: *HR* Rivaroxaban 15 MG TABLET PO SCH (17:37)
[2020-08-12] MEDS: Psyllium 1 PACKET POWD.PACK PO SCH (17:39)
[2020-08-12] MEDS: Insulin LISPRO 300 UNITS/3 ML VIAL SUBQ SCH ×2 (17:44→23:53)
[2020-08-12] MEDS: Budesonide/Formoterol 80/4.5 1 PUFF INH IH SCH (21:29)
[2020-08-12] MEDS: clonazePAM 0.5 MG TABLET PO PRN (23:45)
[2020-08-12] MEDS: rOPINIRole 0.25 MG TABLET PO SCH (23:46)
[2020-08-12] MEDS: Insulin DETEMIR 100 UNIT/ML X5UNITS SUBQ SCH (23:55)
[2020-08-13] MEDS ORDERED: *HR* Labetalol 20 MG/4 ML SYRINGE IVP PRN (04:45)
[2020-08-13 05:02] LABS: Basophils # 0.1 K/mcL (0.0-0.2); Basophils % 0.5 %; Eosinophils # 0.2 K/mcL (0.0-0.6); Eosinophils % 1.9 %; Hematocrit 33.2 % (37.5-50.1); Hemoglobin 9.5 g/dL (12.9-16.9); Immature Granulocytes % 2.3 % (0-4); Lymphocytes # 1.8 K/mcL (0.6-4.6); Lymphocytes % 15.1 %; Mean Corpuscular HGB Conc 28.6 g/dL (31.6-35.5); Mean Corpuscular Hemoglobin 21.6 pg (28.0-33.3); Mean Corpuscular Volume 75.5 fL (83.0-100.0); Mean Platelet Volume 8.8 fL (9.4-12.4); Monocytes # 0.9 K/mcL (0.0-1.3); Monocytes % 7.5 %; Neutrophils # 8.5 K/mcL (1.6-8.9); Platelet Count 298 K/mcL (140-400); Red Cell Distribution Width 24.8 % (11.5-14.5); Segmented Neutrophils % 72.7 %; White Blood Count 11.7 K/mcL (4.3-11.1)
[2020-08-13 05:11] LABS: Anisocytosis 2+ (Not Present); Hypochromasia Present (Not Present); Microcytosis Present (Not Present); Platelet Estimate Normal (Normal)
[2020-08-13 05:20] LABS: BUN/Creatinine Ratio 34 (6-26); Blood Urea Nitrogen 33 mg/dL (8-23); Calcium 8.7 mg/dL (8.6-10.3); Carbon Dioxide 34 mEq/L (23-29); Chloride 96 mEq/L (98-107); Glucose 177 mg/dL (70-105); Osmolality,Calculated 300 (280-300); Potassium 3.3 mEq/L (3.5-5.1); Sodium 139 mEq/L (136-145); eGFR For African Americans > 60 (> 60); eGFR For Non-African Americans > 60 (> 60)
[2020-08-13] MEDS ORDERED: hydrALAZINE 25 MG TABLET PO PRN (05:43)
[2020-08-13] MEDS: *HR* Rivaroxaban 15 MG TABLET PO SCH ×2 (07:18→17:15)
[2020-08-13] MEDS ORDERED: Insulin LISPRO 300 UNITS/3 ML VIAL SUBQ SCH (07:30)
[2020-08-13] MEDS: predniSONE 20 MG TABLET PO SCH (08:04)
[2020-08-13] MEDS: *HR* Metformin 500 MG TABLET PO SCH ×2 (08:04→17:15)
[2020-08-13] MEDS: Furosemide 40 MG TABLET PO SCH ×2 (08:04→17:15)
[2020-08-13] MEDS: Psyllium 1 PACKET POWD.PACK PO SCH ×3 (08:04→17:15)
[2020-08-13] MEDS: Magnesium Oxide 400 MG TABLET PO SCH (08:04)
[2020-08-13] MEDS: Aspirin 81 MG TAB.CHEW PO SCH (08:04)
[2020-08-13] MEDS: Loratadine 10 MG TABLET PO SCH (08:04)
[2020-08-13] MEDS: Roflumilast [Daliresp] 500 MCG Tablet PO SCH (08:05)
[2020-08-13] MEDS: Fluticasone Propionate Nasal 50 MCG/SPRAY BOTTLE NS SCH (08:27)
[2020-08-13] MEDS: Insulin LISPRO 300 UNITS/3 ML VIAL SUBQ SCH ×4 (08:27→21:45)
[2020-08-13] MEDS: Budesonide/Formoterol 80/4.5 1 PUFF INH IH SCH ×2 (09:15→21:54)
[2020-08-13] MEDS: Tiotropium 10 INH DOSE IH SCH (09:15)
[2020-08-13] MEDS: Insulin DETEMIR 100 UNIT/ML X5UNITS SUBQ SCH ×2 (12:22→21:45)
[2020-08-13] MEDS: Menthol 9.1 MG LOZENGE PO PRN (21:39)
[2020-08-13] MEDS: rOPINIRole 0.25 MG TABLET PO SCH (21:40)
[2020-08-13] MEDS: clonazePAM 0.5 MG TABLET PO PRN (21:41)
[2020-08-14] MEDS: Aspirin 81 MG TAB.CHEW PO SCH (08:34)
[2020-08-14] MEDS: Loratadine 10 MG TABLET PO SCH (08:34)
[2020-08-14] MEDS: Magnesium Oxide 400 MG TABLET PO SCH (08:34)
[2020-08-14] MEDS: predniSONE 20 MG TABLET PO SCH (08:34)
[2020-08-14] MEDS: Insulin DETEMIR 100 UNIT/ML X5UNITS SUBQ SCH ×2 (08:35→20:42)
[2020-08-14] MEDS: *HR* Metformin 500 MG TABLET PO SCH ×2 (08:35→17:25)
[2020-08-14] MEDS: Furosemide 40 MG TABLET PO SCH ×2 (08:35→17:25)
[2020-08-14] MEDS: *HR* Rivaroxaban 15 MG TABLET PO SCH ×2 (08:35→17:25)
[2020-08-14] MEDS: Insulin LISPRO 300 UNITS/3 ML VIAL SUBQ SCH ×4 (08:35→20:42)
[2020-08-14] MEDS: Roflumilast [Daliresp] 500 MCG Tablet PO SCH (08:36)
[2020-08-14] MEDS: Psyllium 1 PACKET POWD.PACK PO SCH ×3 (08:36→17:26)
[2020-08-14] MEDS: Fluticasone Propionate Nasal 50 MCG/SPRAY BOTTLE NS SCH (08:36)
[2020-08-14] MEDS: Tiotropium 10 INH DOSE IH SCH (09:55)
[2020-08-14] MEDS: Budesonide/Formoterol 80/4.5 1 PUFF INH IH SCH ×2 (09:56→20:07)
[2020-08-14] MEDS: rOPINIRole 0.25 MG TABLET PO SCH (20:41)
[2020-08-14] MEDS: clonazePAM 0.5 MG TABLET PO PRN (20:46)
[2020-08-15 04:39] LABS: Hematocrit 31.8 % (37.5-50.1); Hemoglobin 9.2 g/dL (12.9-16.9); Mean Corpuscular HGB Conc 28.9 g/dL (31.6-35.5); Mean Corpuscular Hemoglobin 22.2 pg (28.0-33.3); Mean Corpuscular Volume 76.6 fL (83.0-100.0); Mean Platelet Volume 9.1 fL (9.4-12.4); Platelet Count 285 K/mcL (140-400); Red Blood Count 4.15 M/mcL (4.19-5.50); Red Cell Distribution Width 25.7 % (11.5-14.5); White Blood Count 11.3 K/mcL (4.3-11.1)
[2020-08-15 04:57] LABS: Alanine Aminotransferase 17 Units/L (7-52); Albumin 3.5 g/dL (3.5-5.7); Albumin/Globulin Ratio 1.7 (1.1-2.2); Alkaline Phosphatase 64 Units/L (34-104); Aspartate Amino Transferase 8 Units/L (13-39); BUN/Creatinine Ratio 29 (6-26); Bilirubin,Total 0.2 mg/dL (0.3-1.0); Blood Urea Nitrogen 27 mg/dL (8-23); Calcium 9.1 mg/dL (8.6-10.3); Carbon Dioxide 33 mEq/L (23-29); Chloride 99 mEq/L (98-107); Globulin 2.1 g/dL (2.4-3.5); Glucose 174 mg/dL (70-105); Osmolality,Calculated 299 (280-300); Potassium 3.5 mEq/L (3.5-5.1); Sodium 140 mEq/L (136-145); Total Protein 5.6 g/dL (6.4-8.9); eGFR For African Americans > 60 (> 60); eGFR For Non-African Americans > 60 (> 60)
[2020-08-15] MEDS: Psyllium 1 PACKET POWD.PACK PO SCH ×3 (06:24→17:22)
[2020-08-15] MEDS: *HR* Rivaroxaban 15 MG TABLET PO SCH ×2 (06:24→17:21)
[2020-08-15] MEDS: Loratadine 10 MG TABLET PO SCH (08:38)
[2020-08-15] MEDS: Furosemide 40 MG TABLET PO SCH ×2 (08:39→17:21)
[2020-08-15] MEDS: Aspirin 81 MG TAB.CHEW PO SCH (08:39)
[2020-08-15] MEDS: *HR* Metformin 500 MG TABLET PO SCH ×2 (08:39→17:21)
[2020-08-15] MEDS: predniSONE 20 MG TABLET PO SCH (08:39)
[2020-08-15] MEDS: Magnesium Oxide 400 MG TABLET PO SCH (08:39)
[2020-08-15] MEDS: Fluticasone Propionate Nasal 50 MCG/SPRAY BOTTLE NS SCH (08:40)
[2020-08-15] MEDS: Insulin LISPRO 300 UNITS/3 ML VIAL SUBQ SCH ×4 (08:40→20:19)
[2020-08-15] MEDS: Insulin DETEMIR 100 UNIT/ML X5UNITS SUBQ SCH ×2 (08:40→20:19)
[2020-08-15] MEDS: Roflumilast [Daliresp] 500 MCG Tablet PO SCH (08:41)
[2020-08-15] MEDS: Menthol 9.1 MG LOZENGE PO PRN (08:52)
[2020-08-15] MEDS: Tiotropium 10 INH DOSE IH SCH (09:20)
[2020-08-15] MEDS: Budesonide/Formoterol 80/4.5 1 PUFF INH IH SCH ×2 (09:22→20:03)
[2020-08-15] MEDS: clonazePAM 0.5 MG TABLET PO PRN (20:22)
[2020-08-15] MEDS: rOPINIRole 0.25 MG TABLET PO SCH (20:22)
[2020-08-16] MEDS: Psyllium 1 PACKET POWD.PACK PO SCH ×4 (05:38→20:18)
[2020-08-16] MEDS: *HR* Rivaroxaban 15 MG TABLET PO SCH ×2 (05:38→16:55)
[2020-08-16] MEDS: Insulin LISPRO 300 UNITS/3 ML VIAL SUBQ SCH ×4 (07:58→20:13)
[2020-08-16] MEDS: predniSONE 20 MG TABLET PO SCH (08:35)
[2020-08-16] MEDS: Magnesium Oxide 400 MG TABLET PO SCH (08:35)
[2020-08-16] MEDS: Aspirin 81 MG TAB.CHEW PO SCH (08:35)
[2020-08-16] MEDS: *HR* Metformin 500 MG TABLET PO SCH ×2 (08:35→16:55)
[2020-08-16] MEDS: Loratadine 10 MG TABLET PO SCH (08:36)
[2020-08-16] MEDS: Furosemide 40 MG TABLET PO SCH ×2 (08:36→16:55)
[2020-08-16] MEDS: Fluticasone Propionate Nasal 50 MCG/SPRAY BOTTLE NS SCH (08:37)
[2020-08-16] MEDS: Insulin DETEMIR 100 UNIT/ML X5UNITS SUBQ SCH ×2 (08:37→20:15)
[2020-08-16] MEDS: Roflumilast [Daliresp] 500 MCG Tablet PO SCH (08:38)
[2020-08-16] MEDS: Menthol 9.1 MG LOZENGE PO PRN (08:42)
[2020-08-16] MEDS: Tiotropium 10 INH DOSE IH SCH (09:16)
[2020-08-16] MEDS: Budesonide/Formoterol 80/4.5 1 PUFF INH IH SCH ×2 (09:19→21:13)
[2020-08-16] MEDS: clonazePAM 0.5 MG TABLET PO PRN (20:14)
[2020-08-16] MEDS: rOPINIRole 0.25 MG TABLET PO SCH (20:14)
[2020-08-17] MEDS: Insulin LISPRO 300 UNITS/3 ML VIAL SUBQ SCH ×4 (07:56→22:47)
[2020-08-17] MEDS: Insulin DETEMIR 100 UNIT/ML X5UNITS SUBQ SCH ×2 (08:00→22:46)
[2020-08-17] MEDS: Fluticasone Propionate Nasal 50 MCG/SPRAY BOTTLE NS SCH (08:00)
[2020-08-17] MEDS: Aspirin 81 MG TAB.CHEW PO SCH (08:06)
[2020-08-17] MEDS: *HR* Rivaroxaban 10 MG TABLET PO SCH (08:06)
[2020-08-17] MEDS: predniSONE 20 MG TABLET PO SCH (08:06)
[2020-08-17] MEDS: Loratadine 10 MG TABLET PO SCH (08:07)
[2020-08-17] MEDS: Furosemide 40 MG TABLET PO SCH ×2 (08:07→16:52)
[2020-08-17] MEDS: *HR* Metformin 500 MG TABLET PO SCH ×2 (08:07→16:52)
[2020-08-17] MEDS: Psyllium 1 PACKET POWD.PACK PO SCH ×2 (08:08→12:19)
[2020-08-17] MEDS: Roflumilast [Daliresp] 500 MCG Tablet PO SCH (08:08)
[2020-08-17] MEDS: Magnesium Oxide 400 MG TABLET PO SCH (08:08)
[2020-08-17] MEDS: Budesonide/Formoterol 80/4.5 1 PUFF INH IH SCH ×2 (08:17→18:17)
[2020-08-17] MEDS: Tiotropium 10 INH DOSE IH SCH (08:18)
[2020-08-17] MEDS ORDERED: Psyllium 1 PACKET POWD.PACK PO PRN (12:14)
[2020-08-17] MEDS: clonazePAM 0.5 MG TABLET PO PRN (22:39)
[2020-08-17] MEDS: rOPINIRole 0.25 MG TABLET PO SCH (22:41)
[2020-08-18 04:44] LABS: Basophils # 0.1 K/mcL (0.0-0.2); Basophils % 0.5 %; Eosinophils % 1.9 %; Hematocrit 31.3 % (37.5-50.1); Hemoglobin 8.9 g/dL (12.9-16.9); Lymphocytes # 2.5 K/mcL (0.6-4.6); Lymphocytes % 19.1 %; Mean Corpuscular HGB Conc 28.4 g/dL (31.6-35.5); Mean Corpuscular Hemoglobin 22.3 pg (28.0-33.3); Mean Corpuscular Volume 78.4 fL (83.0-100.0); Monocytes # 0.9 K/mcL (0.0-1.3); Monocytes % 6.6 %; Neutrophils # 8.8 K/mcL (1.6-8.9); Nucleated Red Blood Cells 0.2 /100 WBC (0); Platelet Count 291 K/mcL (140-400); Red Blood Count 3.99 M/mcL (4.19-5.50); Red Cell Distribution Width 26.1 % (11.5-14.5); Segmented Neutrophils % 67.9 %
[2020-08-18 04:45] LABS: Eosinophils # 0.3 K/mcL (0.0-0.6)
[2020-08-18 04:59] LABS: BUN/Creatinine Ratio 22 (6-26); Blood Urea Nitrogen 22 mg/dL (8-23); Calcium 8.7 mg/dL (8.6-10.3); Carbon Dioxide 34 mEq/L (23-29); Chloride 97 mEq/L (98-107); Glucose 127 mg/dL (70-105); Osmolality,Calculated 293 (280-300); Potassium 3.6 mEq/L (3.5-5.1); Sodium 139 mEq/L (136-145); eGFR For African Americans > 60 (> 60); eGFR For Non-African Americans > 60 (> 60)
[2020-08-18] MEDS: Insulin LISPRO 300 UNITS/3 ML VIAL SUBQ SCH ×4 (08:49→21:50)
[2020-08-18] MEDS: Magnesium Oxide 400 MG TABLET PO SCH (08:51)
[2020-08-18] MEDS: predniSONE 20 MG TABLET PO SCH (08:51)
[2020-08-18] MEDS: Loratadine 10 MG TABLET PO SCH (08:51)
[2020-08-18] MEDS: *HR* Metformin 500 MG TABLET PO SCH ×2 (08:51→17:49)
[2020-08-18] MEDS: Aspirin 81 MG TAB.CHEW PO SCH (08:51)
[2020-08-18] MEDS: Furosemide 40 MG TABLET PO SCH ×2 (08:51→17:49)
[2020-08-18] MEDS: Roflumilast [Daliresp] 500 MCG Tablet PO SCH (08:52)
[2020-08-18] MEDS: *HR* Rivaroxaban 10 MG TABLET PO SCH (08:52)
[2020-08-18] MEDS: Insulin DETEMIR 100 UNIT/ML X5UNITS SUBQ SCH ×2 (08:52→21:49)
[2020-08-18] MEDS: Tiotropium 10 INH DOSE IH SCH (08:57)
[2020-08-18] MEDS: Budesonide/Formoterol 80/4.5 1 PUFF INH IH SCH ×2 (08:57→19:09)
[2020-08-18] MEDS: Fluticasone Propionate Nasal 50 MCG/SPRAY BOTTLE NS SCH (09:11)
[2020-08-18] MEDS: clonazePAM 0.5 MG TABLET PO PRN (21:45)
[2020-08-18] MEDS: rOPINIRole 0.25 MG TABLET PO SCH (21:45)
[2020-08-19 05:17] LABS: Basophils # 0.1 K/mcL (0.0-0.2); Basophils % 0.6 %; Eosinophils # 0.2 K/mcL (0.0-0.6); Eosinophils % 1.5 %; Hematocrit 31.7 % (37.5-50.1); Hemoglobin 9.2 g/dL (12.9-16.9); Immature Granulocytes % 4.4 % (0-4); Lymphocytes # 2.1 K/mcL (0.6-4.6); Lymphocytes % 15.6 %; Mean Corpuscular Hemoglobin 22.6 pg (28.0-33.3); Mean Corpuscular Volume 77.9 fL (83.0-100.0); Mean Platelet Volume 8.7 fL (9.4-12.4); Monocytes # 0.9 K/mcL (0.0-1.3); Monocytes % 6.3 %; Neutrophils # 9.8 K/mcL (1.6-8.9); Nucleated Red Blood Cells 0.2 /100 WBC (0); Platelet Count 299 K/mcL (140-400); Red Blood Count 4.07 M/mcL (4.19-5.50); Segmented Neutrophils % 71.6 %; White Blood Count 13.7 K/mcL (4.3-11.1)
[2020-08-19 05:24] LABS: Anisocytosis 1+ (Not Present); Platelet Estimate Normal (Normal)
[2020-08-19 05:31] LABS: BUN/Creatinine Ratio 20 (6-26); Blood Urea Nitrogen 20 mg/dL (8-23); Calcium 8.4 mg/dL (8.6-10.3); Carbon Dioxide 33 mEq/L (23-29); Chloride 97 mEq/L (98-107); Glucose 96 mg/dL (70-105); Osmolality,Calculated 292 (280-300); Potassium 3.4 mEq/L (3.5-5.1); Sodium 140 mEq/L (136-145); eGFR For African Americans > 60 (> 60); eGFR For Non-African Americans > 60 (> 60)
[2020-08-19] MEDS: Aspirin 81 MG TAB.CHEW PO SCH (08:32)
[2020-08-19] MEDS: *HR* Metformin 500 MG TABLET PO SCH ×2 (08:32→16:51)
[2020-08-19] MEDS: Magnesium Oxide 400 MG TABLET PO SCH (08:33)
[2020-08-19] MEDS: *HR* Rivaroxaban 10 MG TABLET PO SCH (08:33)
[2020-08-19] MEDS: Loratadine 10 MG TABLET PO SCH (08:33)
[2020-08-19] MEDS: predniSONE 20 MG TABLET PO SCH (08:33)
[2020-08-19] MEDS: Furosemide 40 MG TABLET PO SCH ×2 (08:34→16:51)
[2020-08-19] MEDS: Roflumilast [Daliresp] 500 MCG Tablet PO SCH (08:34)
[2020-08-19] MEDS: Fluticasone Propionate Nasal 50 MCG/SPRAY BOTTLE NS SCH (08:37)
[2020-08-19] MEDS: Insulin LISPRO 300 UNITS/3 ML VIAL SUBQ SCH ×4 (08:38→20:25)
[2020-08-19] MEDS: Insulin DETEMIR 100 UNIT/ML X5UNITS SUBQ SCH ×2 (08:40→20:26)
[2020-08-19] MEDS: Tiotropium 10 INH DOSE IH SCH (08:55)
[2020-08-19] MEDS: Budesonide/Formoterol 80/4.5 1 PUFF INH IH SCH ×2 (08:56→20:15)
[2020-08-19] MEDS: rOPINIRole 0.25 MG TABLET PO SCH (20:23)
[2020-08-19] MEDS: clonazePAM 0.5 MG TABLET PO PRN (20:24)
[2020-08-20] MEDS: Insulin LISPRO 300 UNITS/3 ML VIAL SUBQ SCH (07:57)
[2020-08-20] MEDS: *HR* Rivaroxaban 10 MG TABLET PO SCH (08:51)
[2020-08-20] MEDS: Fluticasone Propionate Nasal 50 MCG/SPRAY BOTTLE NS SCH (08:51)
[2020-08-20] MEDS: Loratadine 10 MG TABLET PO SCH (08:52)
[2020-08-20] MEDS: Magnesium Oxide 400 MG TABLET PO SCH (08:52)
[2020-08-20] MEDS: Aspirin 81 MG TAB.CHEW PO SCH (08:52)
[2020-08-20] MEDS: *HR* Metformin 500 MG TABLET PO SCH (08:52)
[2020-08-20] MEDS: Roflumilast [Daliresp] 500 MCG Tablet PO SCH (08:53)
[2020-08-20] MEDS: Furosemide 40 MG TABLET PO SCH (08:55)
[2020-08-20] MEDS: Insulin DETEMIR 100 UNIT/ML X5UNITS SUBQ SCH (08:55)
[2020-08-20] MEDS ORDERED: predniSONE 20 MG TABLET PO SCH (09:00)
[2020-08-20 09:01] VITALS: BP 143/74
[2020-08-20] MEDS: Tiotropium 10 INH DOSE IH SCH (09:20)
[2020-08-20] MEDS: Budesonide/Formoterol 80/4.5 1 PUFF INH IH SCH (09:21)
[2020-08-23] MEDS ORDERED: predniSONE 10 MG TABLET PO SCH (09:00)
== END 2020-08-20 11:12 | disposition home health service (06) | DRG 945 ==
LOC: INPGRE 08-12 14:39
PROVIDERS: ADMIT Family Medicine; ATTEND Family Medicine

== ENCOUNTER 2021-02-22 15:29 | Inpatient (IN) ==
[2021-02-23] MEDS ORDERED: Saline Nasal Spray 44 ML BOTTLE NS PRN (16:34)
[2021-02-23] MEDS ORDERED: Acetaminophen 325 MG TABLET PO PRN (16:34)
[2021-02-23] MEDS ORDERED: Insulin DETEMIR 100 UNIT/ML per UNIT SUBQ ONE (21:00)
[2021-02-23] MEDS: rOPINIRole 0.25 MG TABLET PO SCH (21:17)
[2021-02-23] MEDS: Psyllium 1 PACKET POWD.PACK PO SCH (21:17)
[2021-02-23] MEDS: Furosemide 20 MG TABLET PO SCH (21:18)
[2021-02-23] MEDS: clonazePAM 0.5 MG TABLET PO PRN (21:18)
[2021-02-23] MEDS: *HR* Metformin 500 MG TABLET PO SCH (21:19)
[2021-02-23] MEDS: Budesonide/Formoterol 160/4.5 1 PUFF INH IH SCH (21:55)
[2021-02-24 06:11] LABS: Basophils % 0.1 %; Eosinophils # 0.3 K/mcL (0.0-0.6); Eosinophils % 1.6 %; Hematocrit 32.6 % (37.5-50.1); Hemoglobin 8.7 g/dL (12.9-16.9); Immature Granulocytes % 1.4 % (0-4); Lymphocytes # 2.6 K/mcL (0.6-4.6); Lymphocytes % 15.3 %; Mean Corpuscular HGB Conc 26.7 g/dL (31.6-35.5); Mean Corpuscular Hemoglobin 19.4 pg (28.0-33.3); Mean Corpuscular Volume 72.6 fL (83.0-100.0); Mean Platelet Volume 8.7 fL (9.4-12.4); Monocytes # 1.4 K/mcL (0.0-1.3); Monocytes % 8.1 %; Neutrophils # 12.5 K/mcL (1.6-8.9); Nucleated Red Blood Cells 0.1 /100 WBC (0); Platelet Count 479 K/mcL (140-400); Red Blood Count 4.49 M/mcL (4.19-5.50); Red Cell Distribution Width 23.4 % (11.5-14.5); Segmented Neutrophils % 73.5 %
[2021-02-24 06:40] LABS: BUN/Creatinine Ratio 34 (6-26); Blood Urea Nitrogen 29 mg/dL (8-23); Calcium 8.4 mg/dL (8.6-10.3); Carbon Dioxide 35 mEq/L (23-29); Chloride 98 mEq/L (98-107); Glucose 150 mg/dL (70-105); Osmolality,Calculated 295 (280-300); Potassium 3.6 mEq/L (3.5-5.1); Sodium 138 mEq/L (136-145); eGFR For African Americans > 60 (> 60); eGFR For Non-African Americans > 60 (> 60)
[2021-02-24] MEDS: *HR* Metformin 500 MG TABLET PO SCH ×2 (08:53→16:41)
[2021-02-24] MEDS: Loratadine 10 MG TABLET PO SCH (08:54)
[2021-02-24] MEDS: Magnesium Oxide 400 MG TABLET PO SCH (08:54)
[2021-02-24] MEDS: Psyllium 1 PACKET POWD.PACK PO SCH ×4 (08:54→20:50)
[2021-02-24] MEDS: Aspirin 81 MG TAB.CHEW PO SCH (08:54)
[2021-02-24] MEDS: Furosemide 20 MG TABLET PO SCH ×2 (08:55→16:42)
[2021-02-24] MEDS: predniSONE 20 MG TABLET PO SCH (08:55)
[2021-02-24] MEDS ORDERED: NON-FORMULARY MEDICATION 1 EACH EACH (Umeclidinium Bromide [Incruse Ellipta] 62.5 MCG Blst IH SCH (09:00)
[2021-02-24] MEDS: (Roflumilast [Daliresp] 500 MCG Tablet) PO SCH (09:05)
[2021-02-24] MEDS: Fluticasone Propionate Nasal 50 MCG/SPRAY BOTTLE NS SCH (09:16)
[2021-02-24] MEDS: Insulin DETEMIR 100 UNIT/ML X5UNITS SUBQ SCH ×2 (09:16→20:51)
[2021-02-24] MEDS: CANAGLIFLOZIN 100 MG PO SCH (09:17)
[2021-02-24] MEDS: Tiotropium 10 INH DOSE IH SCH (09:50)
[2021-02-24] MEDS: Budesonide/Formoterol 160/4.5 1 PUFF INH IH SCH ×2 (09:52→21:53)
[2021-02-24] MEDS: *HR* Rivaroxaban 10 MG TABLET PO SCH (16:41)
[2021-02-24] MEDS ORDERED: D5% in Water 1,000 ML IVC PRN (16:47)
[2021-02-24] MEDS ORDERED: Dextrose Gel 15 GM/37.5 ML TUBE PO PRN ×2 (16:47)
[2021-02-24] MEDS ORDERED: *HR* Dextrose 50 % in Water (Vial) 50 ML VIAL IVP PRN (16:47)
[2021-02-24] MEDS: Insulin LISPRO 300 UNITS/3 ML VIAL SUBQ SCH ×2 (18:56→20:41)
[2021-02-24] MEDS: clonazePAM 0.5 MG TABLET PO PRN (20:51)
[2021-02-24] MEDS: rOPINIRole 0.25 MG TABLET PO SCH (20:51)
[2021-02-25] MEDS: Furosemide 20 MG TABLET PO SCH ×2 (07:34→16:39)
[2021-02-25] MEDS: Aspirin 81 MG TAB.CHEW PO SCH (07:34)
[2021-02-25] MEDS: *HR* Metformin 500 MG TABLET PO SCH ×2 (07:34→16:39)
[2021-02-25] MEDS: predniSONE 20 MG TABLET PO SCH (07:35)
[2021-02-25] MEDS: Loratadine 10 MG TABLET PO SCH (07:35)
[2021-02-25] MEDS: Psyllium 1 PACKET POWD.PACK PO SCH ×3 (07:36→21:17)
[2021-02-25] MEDS: Fluticasone Propionate Nasal 50 MCG/SPRAY BOTTLE NS SCH (07:36)
[2021-02-25] MEDS: CANAGLIFLOZIN 100 MG PO SCH (07:36)
[2021-02-25] MEDS: Magnesium Oxide 400 MG TABLET PO SCH (07:36)
[2021-02-25] MEDS: (Roflumilast [Daliresp] 500 MCG Tablet) PO SCH (07:37)
[2021-02-25] MEDS: Insulin LISPRO 300 UNITS/3 ML VIAL SUBQ SCH ×4 (07:45→21:19)
[2021-02-25] MEDS: Insulin DETEMIR 100 UNIT/ML X5UNITS SUBQ SCH ×2 (07:46→21:19)
[2021-02-25] MEDS: Tiotropium 10 INH DOSE IH SCH (09:49)
[2021-02-25] MEDS: Budesonide/Formoterol 160/4.5 1 PUFF INH IH SCH ×2 (09:49→21:02)
[2021-02-25] MEDS: *HR* Rivaroxaban 10 MG TABLET PO SCH (16:39)
[2021-02-25] MEDS: rOPINIRole 0.25 MG TABLET PO SCH (21:18)
[2021-02-25] MEDS: clonazePAM 0.5 MG TABLET PO PRN (21:19)
[2021-02-26] MEDS: Psyllium 1 PACKET POWD.PACK PO SCH ×3 (08:24→21:31)
[2021-02-26] MEDS: Magnesium Oxide 400 MG TABLET PO SCH (08:25)
[2021-02-26] MEDS: Furosemide 20 MG TABLET PO SCH ×2 (08:25→17:02)
[2021-02-26] MEDS: Aspirin 81 MG TAB.CHEW PO SCH (08:25)
[2021-02-26] MEDS: Loratadine 10 MG TABLET PO SCH (08:26)
[2021-02-26] MEDS: *HR* Metformin 500 MG TABLET PO SCH ×2 (08:26→17:02)
[2021-02-26] MEDS: predniSONE 20 MG TABLET PO SCH (08:26)
[2021-02-26] MEDS: Insulin DETEMIR 100 UNIT/ML X5UNITS SUBQ SCH ×2 (08:27→21:32)
[2021-02-26] MEDS: Fluticasone Propionate Nasal 50 MCG/SPRAY BOTTLE NS SCH (08:28)
[2021-02-26] MEDS: Insulin LISPRO 300 UNITS/3 ML VIAL SUBQ SCH ×4 (08:28→21:33)
[2021-02-26] MEDS: (Roflumilast [Daliresp] 500 MCG Tablet) PO SCH (08:28)
[2021-02-26] MEDS: CANAGLIFLOZIN 100 MG PO SCH (08:28)
[2021-02-26] MEDS: Tiotropium 10 INH DOSE IH SCH (10:17)
[2021-02-26] MEDS: Budesonide/Formoterol 160/4.5 1 PUFF INH IH SCH ×2 (10:19→20:05)
[2021-02-26] MEDS: rOPINIRole 0.25 MG TABLET PO SCH ×2 (13:06→21:30)
[2021-02-26] MEDS: *HR* Rivaroxaban 10 MG TABLET PO SCH (17:01)
[2021-02-26] MEDS: clonazePAM 0.5 MG TABLET PO PRN (21:35)
[2021-02-27 07:32] LABS: Basophils % 0.2 %; Eosinophils # 0.3 K/mcL (0.0-0.6); Eosinophils % 2.1 %; Hematocrit 30.2 % (37.5-50.1); Hemoglobin 8.1 g/dL (12.9-16.9); Immature Granulocytes % 1.2 % (0-4); Lymphocytes # 2.7 K/mcL (0.6-4.6); Lymphocytes % 20.9 %; Mean Corpuscular HGB Conc 26.8 g/dL (31.6-35.5); Mean Corpuscular Hemoglobin 19.8 pg (28.0-33.3); Mean Corpuscular Volume 73.8 fL (83.0-100.0); Monocytes # 0.8 K/mcL (0.0-1.3); Monocytes % 5.7 %; Neutrophils # 9.2 K/mcL (1.6-8.9); Platelet Count 365 K/mcL (140-400); Red Blood Count 4.09 M/mcL (4.19-5.50); Red Cell Distribution Width 24.5 % (11.5-14.5); Segmented Neutrophils % 69.9 %; White Blood Count 13.1 K/mcL (4.3-11.1)
[2021-02-27 07:45] LABS: BUN/Creatinine Ratio 27 (6-26); Blood Urea Nitrogen 21 mg/dL (8-23); Calcium 8.5 mg/dL (8.6-10.3); Carbon Dioxide 34 mEq/L (23-29); Chloride 100 mEq/L (98-107); Glucose 89 mg/dL (70-105); Osmolality,Calculated 290 (280-300); Potassium 3.7 mEq/L (3.5-5.1); Sodium 139 mEq/L (136-145); eGFR For African Americans > 60 (> 60); eGFR For Non-African Americans > 60 (> 60)
[2021-02-27] MEDS: Insulin LISPRO 300 UNITS/3 ML VIAL SUBQ SCH ×4 (08:22→20:20)
[2021-02-27] MEDS: Furosemide 20 MG TABLET PO SCH ×2 (08:23→16:27)
[2021-02-27] MEDS: Fluticasone Propionate Nasal 50 MCG/SPRAY BOTTLE NS SCH (08:23)
[2021-02-27] MEDS: Psyllium 1 PACKET POWD.PACK PO SCH ×3 (08:23→20:19)
[2021-02-27] MEDS: *HR* Metformin 500 MG TABLET PO SCH ×2 (08:23→17:14)
[2021-02-27] MEDS: Aspirin 81 MG TAB.CHEW PO SCH (08:24)
[2021-02-27] MEDS: Loratadine 10 MG TABLET PO SCH (08:24)
[2021-02-27] MEDS: Insulin DETEMIR 100 UNIT/ML X5UNITS SUBQ SCH ×2 (08:25→20:19)
[2021-02-27] MEDS: predniSONE 20 MG TABLET PO SCH (08:25)
[2021-02-27] MEDS: Magnesium Oxide 400 MG TABLET PO SCH (08:25)
[2021-02-27] MEDS: (Roflumilast [Daliresp] 500 MCG Tablet) PO SCH (08:26)
[2021-02-27] MEDS: CANAGLIFLOZIN 100 MG PO SCH (08:26)
[2021-02-27] MEDS: rOPINIRole 0.25 MG TABLET PO SCH ×2 (08:31→20:19)
[2021-02-27] MEDS: Tiotropium 10 INH DOSE IH SCH (10:05)
[2021-02-27] MEDS: Budesonide/Formoterol 160/4.5 1 PUFF INH IH SCH ×2 (10:06→20:23)
[2021-02-27] MEDS: *HR* Rivaroxaban 10 MG TABLET PO SCH (16:26)
[2021-02-27] MEDS: clonazePAM 0.5 MG TABLET PO PRN (20:20)
[2021-02-28] MEDS: Furosemide 20 MG TABLET PO SCH ×2 (08:55→16:57)
[2021-02-28] MEDS: *HR* Metformin 500 MG TABLET PO SCH ×2 (08:55→16:57)
[2021-02-28] MEDS: Loratadine 10 MG TABLET PO SCH (08:55)
[2021-02-28] MEDS: Aspirin 81 MG TAB.CHEW PO SCH (08:56)
[2021-02-28] MEDS: predniSONE 20 MG TABLET PO SCH (08:56)
[2021-02-28] MEDS: Magnesium Oxide 400 MG TABLET PO SCH (08:56)
[2021-02-28] MEDS: rOPINIRole 0.25 MG TABLET PO SCH ×2 (08:56→23:49)
[2021-02-28] MEDS: Psyllium 1 PACKET POWD.PACK PO SCH ×3 (08:57→21:17)
[2021-02-28] MEDS: Insulin DETEMIR 100 UNIT/ML X5UNITS SUBQ SCH ×2 (08:57→21:18)
[2021-02-28] MEDS: Fluticasone Propionate Nasal 50 MCG/SPRAY BOTTLE NS SCH (08:58)
[2021-02-28] MEDS: Insulin LISPRO 300 UNITS/3 ML VIAL SUBQ SCH ×4 (08:58→21:19)
[2021-02-28] MEDS: CANAGLIFLOZIN 100 MG PO SCH (09:31)
[2021-02-28] MEDS: (Roflumilast [Daliresp] 500 MCG Tablet) PO SCH (09:32)
[2021-02-28] MEDS: Tiotropium 10 INH DOSE IH SCH (11:08)
[2021-02-28] MEDS: Budesonide/Formoterol 160/4.5 1 PUFF INH IH SCH ×2 (11:09→20:34)
[2021-02-28] MEDS: *HR* Rivaroxaban 10 MG TABLET PO SCH (16:57)
[2021-02-28 20:33] VITALS: TEMP 97.9
[2021-02-28] MEDS: clonazePAM 0.5 MG TABLET PO PRN (21:30)
[2021-03-01] MEDS: predniSONE 20 MG TABLET PO SCH (08:04)
[2021-03-01] MEDS: *HR* Metformin 500 MG TABLET PO SCH ×2 (08:04→16:07)
[2021-03-01] MEDS: Loratadine 10 MG TABLET PO SCH (08:04)
[2021-03-01] MEDS: Furosemide 20 MG TABLET PO SCH ×2 (08:05→16:26)
[2021-03-01] MEDS: Psyllium 1 PACKET POWD.PACK PO SCH ×2 (08:06→14:57)
[2021-03-01] MEDS: Aspirin 81 MG TAB.CHEW PO SCH (08:06)
[2021-03-01] MEDS: rOPINIRole 0.25 MG TABLET PO SCH (08:06)
[2021-03-01] MEDS: Insulin LISPRO 300 UNITS/3 ML VIAL SUBQ SCH ×3 (08:07→16:14)
[2021-03-01] MEDS: Fluticasone Propionate Nasal 50 MCG/SPRAY BOTTLE NS SCH (08:07)
[2021-03-01] MEDS: Insulin DETEMIR 100 UNIT/ML X5UNITS SUBQ SCH (08:11)
[2021-03-01] MEDS: Magnesium Oxide 400 MG TABLET PO SCH (08:12)
[2021-03-01] MEDS: Budesonide/Formoterol 160/4.5 1 PUFF INH IH SCH (08:20)
[2021-03-01] MEDS: Tiotropium 10 INH DOSE IH SCH (08:20)
[2021-03-01] MEDS: (Roflumilast [Daliresp] 500 MCG Tablet) PO SCH (09:43)
[2021-03-01] MEDS: CANAGLIFLOZIN 100 MG PO SCH (09:43)
[2021-03-01] MEDS: *HR* Rivaroxaban 10 MG TABLET PO SCH (16:07)
[2021-03-01 19:20] VITALS: BP 147/55; PULSE 79; RESP 18; O2SAT 95
== END 2021-03-01 19:38 | disposition home health service (06) | DRG 945 ==
LOC: INPGRE 02-23 19:32
PROVIDERS: ADMIT Family Medicine; ATTEND Family Medicine